=== PATIENT | female | born 1995 | race African-American/Black ===

== ENCOUNTER 2024-10-24 12:10 | Emergency (ER) | payer BC, SELFPAY ==
[2024-10-24 12:54] LABS: Pregnancy Test - Urine (BHCG) Negative (Negative); Pregu Control Background? CLEAR/WHITE (CLR/WHITE); Pregu Control Bar Appear? YES (CONTROL BAR)
[2024-10-24 13:14] LABS: ALT (SGPT) 19 U/L (Less than 34); AST (SGOT) 20 U/L (11-34); Albumin 4.1 g/dL (3.1-4.5); Alkaline Phosphatase 74 U/L (40-110); Anion Gap 13 mmol/L (10-20); BUN (Urea Nitrogen) 13 mg/dL (7.0-18.7); Bilirubin, Total 0.3 mg/dL (0.3-1.2); Calc. Creatinine Clearance 0 mL/min (70-130); Calcium 8.9 mg/dL (7.8-10.44); Carbon Dioxide 21 mmol/L (22-29); Chloride 107 mmol/L (98-107); Globulin 3.3 g/dL (2.4-3.5); Glucose 92 mg/dL (70-105); Potassium 4.0 mmol/L (3.5-5.1); Sodium 137 mmol/L (136-145)
[2024-10-24 13:27] LABS: #Basophils 0.05 10x3/uL (0.0-0.2); #Eosinophils 0.15 10x3/uL (0.0-0.7); #Monocytes 0.30 10x3/uL (0.11-0.59); #Neutrophils 2.92 10x3/uL (1.40-6.50); %Basophils 1.0 % (0.0-1.0); %Eosinophils 3.1 % (0.0-10.0); %Lymphocytes 29.6 % (21.0-51.0); %Monocytes 6.2 % (0.0-10.0); %Neutrophils 59.9 % (42.0-75.0); Hematocrit 42.2 % (36.0-47.0); Hemoglobin 14.1 g/dL (12.0-16.0); Mean Corpuscular Hemoglobin 29.0 pg (27.0-31.0); Mean Corpuscular Volume 86.8 fL (78.0-98.0); Platelet Count 227 10x3/uL (130-400); Red Blood Cell (RBC) Count 4.86 mill/uL (4.20-5.40); White Blood Cell (WBC) Count 4.87 10x3/uL (4.8-10.8)
[2024-10-24 13:50] LABS: Platelet Adequacy Comment Platelets Normal
== END 2024-10-24 13:51 | disposition home or self-care (01) ==
LOC: ERS 12:10
DX: I10 Essential (primary) hypertension (principal); Z79.899 Other long term (current) drug therapy
CPT/HCPCS: 36415; 80053; 81025; 85025; 99283

== ENCOUNTER 2024-10-25 09:29 | Emergency (ER) | payer SELFPAY | END 2024-10-25 09:51 | disposition home or self-care (01) | LOC: ERS 09:29 | DX: Z00.00 Encounter for general adult medical examination without abnormal findings (principal) | CPT/HCPCS: 99281 ==